=== PATIENT | female | born 1950 | race Caucasian/White ===

== ENCOUNTER 2020-08-06 06:48 | Day surgery (SDC) | payer MEDICARE ==
[2020-08-06] MEDS ORDERED: Lactated Ringers 1,000 ML IV SCH (07:00)
[2020-08-06] MEDS ORDERED: Sodium Chloride 0.9% 10 ML Syringe FLUSH PRN (07:00)
[2020-08-06] MEDS ORDERED: Propofol 200 MG/20 ML SDV ONE ×2 (08:00→08:29)
[2020-08-06] MEDS ORDERED: Propofol 200 MG/20 ML SDV IV ONE (08:00)
[2020-08-06] MEDS ORDERED: Midazolam 1 MG/ML 2 ML SDV ONE (08:00)
--- NOTE | 2020-08-06 09:08 | PCM.PRNOTE ---
- Free Text/Narrative Note: PROCEDURE PERFORMED: Colonoscopy with polypectomy PRE-PROCEDURE DIAGNOSIS/INDICATION FOR PROCEDURE: Screening for colorectal cancer, family history of colorectal cancer (mother, dx. 70yo), last colonoscopy 09/07/2009 CONSENT: Informed consent was obtained prior to the procedure after discussion of the risks (including pain, bleeding, infection, perforation, missed polyps, inability to completely remove polyps or complete procedure necessitating repeat colonoscopy, adverse reaction to anesthesia, cardiovascular event), benefits and alternatives and expected outcomes. The patient expressed understanding and wished to proceed. Verbal consent given and consent form signed. PROCEDURAL PAUSE: Completed SEDATION: Per anesthesia DESCRIPTION OF PROCEDURE: Patient was placed in the left lateral decubitus position. After adequate sedation and anesthetic was administered, a rectal exam was performed revealing external hemorrhoid tags and poor sphincter tone. A lubricated Olympus Video Colonoscope was inserted into the rectum and air insufflation was performed. The colonoscope was advanced through the rectum, sigmoid, descending, transverse, and ascending colon without difficulties. The cecum was reached and the ileocecal valve as well as the appendiceal orifice were identified and pictorially documented. After adequate visualization of the cecum, the scope was withdrawn, giving 360-degree views of the colonic mucosa and retroflexion was performed in the rectum with the following findings noted: Ileocecal valve: Normal Cecum: Normal Ascending colon: Normal Hepatic flexure: Normal Transverse colon: Normal Splenic flexure: Normal Descending colon: At 70cm, 1cm pedunculated multilobed sessile polyp removed with hot snare. Sigmoid colon: At 50cm, <0.5cm sessile polyp removed with cold forceps. At 15cm, 0.5cm sessile polyp removed with hot snare. Mild small mouth divert iculosis without active inflammation. Rectum: Internal hemorrhoids without active bleeding. All polypectomies with subsequent complete polypoid tissue removal and hemostasis noted. The scope was straightened, air suction performed, and the scope withdrawn without complication. Preparation adequacy [place] Bowel Score 8/9. IMPRESSION: Colonoscopy performed revealing: - 3, pathology now pending - Sigmoid diverticulosis - Internal and external hemorrhoids PLAN: Will contact the patient when pathology results received with recommendation for repeat colonoscopy. Encourage adequate fiber diet and bowel regimen to ensure avoidance of constipation.
== END 2020-08-06 10:20 | disposition home or self-care (01) ==
LOC: KA.SDS 06:48
PROVIDERS: ATTEND Family Medicine
DX: D12.4 Benign neoplasm of descending colon (principal); D12.5 Benign neoplasm of sigmoid colon; K57.30 Diverticulosis of large intestine without perforation or abscess without bleeding; K64.8 Other hemorrhoids; K64.4 Residual hemorrhoidal skin tags; K59.00 Constipation, unspecified; I10 Essential (primary) hypertension; E78.2 Mixed hyperlipidemia; I12.9 Hypertensive chronic kidney disease with stage 1 through stage 4 chronic kidney disease, or unspecified chronic kidney disease; E66.3 Overweight; N18.31 Chronic kidney disease, stage 3a; Z79.899 Other long term (current) drug therapy; Z80.0 Family history of malignant neoplasm of digestive organs; Z90.49 Acquired absence of other specified parts of digestive tract; Z98.890 Other specified postprocedural states; Z87.891 Personal history of nicotine dependence
CPT/HCPCS: 00812; 45380; 45385; J2250; J2704; J7120

== ENCOUNTER 2020-10-07 16:37 | Emergency (ER) | payer MEDICARE, OTHER ==
--- NOTE | 2020-10-07 17:30 | EDM.PDOC ---
ED HPI GENERAL MEDICAL PROBLEM - General Stated Complaint: S/P HIP PROCEDURE NOT FEELING WELL Time Seen by Provider: 10/07/20 16:38 Source of Information: Reports: Patient, Family (daughter) - History of Present Illness INITIAL COMMENTS - FREE TEXT/NARRATIVE: Patient presents for evaluation of constipation, lack of mobility and decreased appetite. She is 5 days s/p right hip replacement and is scheduled to begin PT tomorrow in [place]. She is using Tylenol, Tramadol, and Oxycodone for pain control. A stool softener and Miralax for constipation; she had this problem prior to surgery and narcotic use also. Daughter says she didn't drink much of the Miralax drink at all. She is ambulating with a walker but not as much as the day after surgery in the hospital her daughter says. She isn't having much pain in the hip. She really isn't drinking much water or eating much. Daughter is more concerned than patient is. - Related Data Allergies Allergy/AdvReac Type Severity Reaction Status Date / Time No Known Drug Allergies Allergy Other Verified 10/07/20 18:16 Home Meds: Home Meds Acetaminophen [Pain Reliever] 1,000 mg PO TID PRN 08/03/20 [History] Calcium Carbonate/Vitamin D3 [Calcium 500-Vit D3 200 Caplet] 1 each PO DAILY 08/03/20 [History] Cholecalciferol (Vitamin D3) [Vitamin D3] 2,000 unit PO DAILY 08/03/20 [History] FLUoxetine HCl [Fluoxetine HCl] 20 mg PO DAILY 08/03/20 [History] Gabapentin [Neurontin] 300 mg PO BEDTIME 08/03/20 [History] Lisinopril/Hydrochlorothiazide [Lisinopril-Hctz 20-25 mg Tab] 1 tab PO DAILY 08/03/20 [History] Melatonin 10 mg PO BEDTIME 08/03/20 [History] Propylene Glycol/PEG 400/Pf [Systane 0.3-0.4% Eye Drop] 1 drop EYEBOTH ASDIRECTED PRN 08/03/20 [History] Rosuvastatin Calcium 20 mg PO DAILY 08/03/20 [History] buPROPion HCL [Bupropion Xl] 300 mg PO DAILY 08/03/20 [History] busPIRone [Buspar] 30 mg PO BID 08/03/20 [History] hydrOXYzine HCL [hydrOXYzine] 25 mg PO BID PRN 08/03/20 [History] polyethylene glycoL 3350 [Polyethylene Glycol 3350] 17 gm PO DAILY 30 Days #238 g 08/06/20 [Rx] Past Medical History HEENT History: Reports: Hard of Hearing Cardiovascular History: Reports: High Cholesterol, Hypertension Respiratory History: Reports: None Gastrointestinal History: Reports: Chronic Constipation Genitourinary History: Reports: None Musculoskeletal History: Reports: Back Pain, Chronic, Osteoarthritis Neurological History: Reports: None Psychiatric History: Reports: Anxiety, Depression, Eating Disorders Endocrine/Metabolic History: Reports: None Hematologic History: Reports: None Dermatologic History: Reports: None - Infectious Disease History Infectious Disease History: Reports: Chicken Pox - Past Surgical History GI Surgical History: Reports: Appendectomy Female Surgical History: Reports: Hysterectomy Musculoskeletal Surgical History: Reports: Shoulder Surgery Social & Family History - Caffeine Use Caffeine Use: Reports: Coffee, Soda ED ROS GENERAL - Review of Systems Review Of Systems: See Below Constitutional: Reports: Malaise, Decreased Appetite. Denies: Fever, Chills HEENT: Denies: Throat Pain, Vision Change Respiratory: Denies: Shortness of Breath, Cough Cardiovascular: Denies: Chest Pain, Lightheadedness, Syncope GI/Abdominal: Reports: Constipation. Denies: Abdominal Pain, Diarrhea, Nausea, Vomiting : Denies: Dysuria, Flank Pain Musculoskeletal: Denies: Neck Pain, Shoulder Pain, Arm Pain, Back Pain, Hand Pain Skin: Denies: Cyanosis, Jaundice, Mottled, Pallor, Diaphoresis Neurological: Denies: Confusion, Dizziness, Seizure, Syncope, Trouble Speaking, Difficulty Walking Psychiatric: Denies: Confusion ED EXAM, GI/ABD - Physical Exam Exam: See Below Exam Limited By: No Limitations General Appearance: Alert, WD/WN, No Apparent Distress Eyes: Bilateral: Normal Appearance, EOMI Ears: Normal External Exam, Hearing Grossly Normal Nose: Normal Inspection, No Blood Throat/Mouth: Normal Inspection, Normal Lips, Normal Voice, No Airway Compromise Head: Atraumatic, Normocephalic Neck: Normal Inspection, Full Range of Motion Respiratory/Chest: No Respiratory Distress, Lungs Clear, Normal Breath Sounds Cardiovascular: Regular Rate, Rhythm, No Murmur GI/Abdominal Exam: Normal Bowel Sounds, Soft, Non-Tender, No Organomegaly, No Distention Rectal (Female) Exam: Normal Exam, Normal Rectal Tone. No: Black Stool, Bloody Stool, Decreased Rectal Tone, Fecal Impaction, Hemorrhoids, Mass, Perirectal Abscess, Rectal Fissure, Tenderness Back Exam: Normal Inspection, Full Range of Motion Extremities: Normal Inspection, Normal Range of Motion, Other (Later right hip incision without redness or drainage.) Neurological: Alert, Oriented, Normal Cognition, No Motor/Sensory Deficits Psychiatric: Normal Affect, Normal Mood Skin Exam: Warm, Dry, Intact, Normal Color, No Rash Course - Re-Assessments/Exams Free Text/Narrative Re-Assessment/Exam: 10/07/20 17:30 After discussion of exam findings, I asked if she would like me to check for fecal impaction and she would. 10/07/20 18:22 No fecal impaction so we discussed treatment options for her constipation and decided to go with Mag Citrate. She will start that right away this evening so she will hopefully be cleaned out in time for her PT appointment tomorrow. Her daughter is also concerned about mom's lack of drive and desire to do anything, she would rather just lay on the couch and sleep. I recommend we address the constipation now and see if the level of activity improves once she is doing PT regularly. If not she should follow up with her PCP for further evaluation. After thorough discussion of findings and treatment recommendations with patient and daughter, patient is discharged to home in stable condition. 10/07/20 18:40 I also visited by phone with another daughter. She is concerned about the the lack of drive and energy as well as a recent episode of urine incontinence. Both daughters mentioned they have noticed confusion; one says it has been present for the past several months, the other is thinking it is worse since the surgery. Currently patient is very clear minded and oriented. She is a little frustrated at losing some of her independence and she isn't liking her family controlling her medications and activities this much. The daughter present, noticed that her mother was interacting and responding to me very well and told me that she doesn't always do that; sometimes will trail off as though she has lost her train of thought. I recommended we deal with the constipation and increased fluid intake now. Start PT tomorrow and follow up with PCP if other concerns are not improving as expected. Patient stable at discharge. Departure - Departure Time of Disposition: 18:49 Disposition: Home, Self-Care 01 Condition: Good Clinical Impression: Poor appetite Constipation Qualifiers: Constipation type: unspecified constipation type Qualified Code(s): K59.00 - Constipation, unspecified S/P hip replacement Qualifiers: Laterality: right Qualified Code(s): Z96.641 - Presence of right artificial hip joint - Discharge Information Instructions: Constipation, Adult, [id number] Additional Instructions: Drink 8 cups of water daily. Take Mag Citrate, the whole bottle, when you get home tonight. Go to your PT appointment, very important to get adequate therapy for your hip. Take your pain medications as directed. Follow up with your PCP in 2-3 days if any persisting problems, or recheck sooner if worsening.
[2020-10-07] MEDS ORDERED: Magnesium Citrate Solution 296 ML Bottle PO ONE (18:45)
== END 2020-10-07 19:00 | disposition home or self-care (01) ==
LOC: KA.ED 16:37
DX: K59.00 Constipation, unspecified (principal); R63.0 Anorexia; E78.00 Pure hypercholesterolemia, unspecified; I10 Essential (primary) hypertension; M19.90 Unspecified osteoarthritis, unspecified site; Z96.641 Presence of right artificial hip joint; Z79.899 Other long term (current) drug therapy
CPT/HCPCS: 99283; 99284; A9270-GY

== ENCOUNTER 2024-09-20 09:03 | Day surgery (SDC) | payer MEDICARE, OTHER ==
[~2024-09-20 09:03] MED LIST: Sodium Chloride 0.9% 10 ML Syringe FLUSH PRN
[2024-09-20] MEDS ORDERED: Midazolam 1 MG/ML 2 ML SDV ONE (09:50)
[2024-09-20] MEDS ORDERED: Propofol 200 MG/20 ML SDV ONE (09:50)
[2024-09-20] MEDS ORDERED: Lactated Ringers 1,000 ML IV SCH (10:00)
[2024-09-20] MEDS ORDERED: Sodium Chloride 0.9% 10 ML Syringe FLUSH PRN (10:00)
[2024-09-20] MEDS: Lactated Ringers 1,000 ML IV SCH (10:15)
== END 2024-09-20 12:20 | disposition home or self-care (01) ==
LOC: KA.SDS 09:03
PROVIDERS: ATTEND Family Medicine
DX: Z12.11 Encounter for screening for malignant neoplasm of colon (principal); K57.30 Diverticulosis of large intestine without perforation or abscess without bleeding; K64.8 Other hemorrhoids; D12.2 Benign neoplasm of ascending colon; D12.0 Benign neoplasm of cecum; K63.5 Polyp of colon; I12.9 Hypertensive chronic kidney disease with stage 1 through stage 4 chronic kidney disease, or unspecified chronic kidney disease; N18.32 Chronic kidney disease, stage 3b; F41.9 Anxiety disorder, unspecified; Z79.899 Other long term (current) drug therapy
CPT/HCPCS: 00811; 88305; J2250; J2704; J7120